=== PATIENT | female | born 1950 | race African-American/Black ===

== ENCOUNTER 2022-10-12 02:02 | Inpatient (IN) | payer MEDICARE, MEDICAID ==
[~2022-10-12] VITALS: Ht 170.2 cm; Wt 50.9 kg
[2022-10-12] MEDS ORDERED: MORPHINE SULFATE 4 MG/ML CPJ (NOT FOR IM USE) IV ONE (03:30)
[2022-10-12] MEDS ORDERED: FUROSEMIDE 100MG/10ML VIAL IVP ONE (03:30)
[2022-10-12] MEDS ORDERED: ENALAPRIL 2.5MG/2ML VIAL 2ML IV ONE (03:30)
[2022-10-12] MEDS ORDERED: NITROGLYCERIN OINT 1GM/INCH UDPKT TD ONE ×2 (03:30)
[2022-10-12] MEDS ORDERED: FUROSEMIDE 40MG/4ML VIAL IVP NR (03:45)
[2022-10-12] MEDS ORDERED: ENALAPRIL 2.5MG/2ML VIAL 2ML IV NR (04:15)
[2022-10-12 04:42] LABS: BASOPHILS % 0.8 % (0.0-2.0); EOSINOPHILS % 1.4 % (0.0-5.0); HEMATOCRIT. 34.4 % (36.0-48.0); HEMOGLOBIN. 11.2 g/dL (12.0-16.0); LYMPHOCYTES % 28.9 % (20.0-50.0); MEAN CORPUSCULAR HEMOGLOBIN 30.4 pg (28.0-32.0); MEAN CORPUSCULAR VOLUME 93.1 fL (81.0-99.0); MEAN PLATELET VOLUME 10.3 fl (7.4-10.4); MONOCYTES % 4.8 % (2.0-8.0); NEUTROPHILS % 64.1 % (40.0-76.0); PLATELET 234 x1000/uL (130-400); RED BLOOD CELL COUNT 3.69 mill/uL (4.2-5.4); RED CELL DISTRIBUTION WIDTH 16.1 % (11.6-14.6)
[2022-10-12 04:50] LABS: CHLORIDE 114 mEq/L (98-107)
[2022-10-12] MEDS ORDERED: LEVOFLOXACIN 500MG PREMIX 100 ML IV NR (05:45)
[2022-10-12] MEDS ORDERED: IPRATROPIUM/ALBUTEROL 0.5-3(2.5)MG/3ML NEB HHN PRN ×2 (09:45→12:30)
[2022-10-12] MEDS ORDERED: DOCUSATE SODIUM 100MG CAPSULE PO PRN (09:45)
[2022-10-12] MEDS ORDERED: ONDANSETRON HCL 4MG/2ML INJ IV PRN (09:45)
[2022-10-12] MEDS ORDERED: LORAZEPAM 0.5MG TABLET PO PRN (09:45)
[2022-10-12] MEDS ORDERED: SODIUM POLYSTYRENE SULFONATE 15 G/60 ML BOT PO NR (09:45)
[2022-10-12] MEDS ORDERED: GUAIFENESIN 200MG/10ML SUGAR FREE UDC PO PRN (09:45)
[2022-10-12] MEDS ORDERED: ACETAMINOPHEN 325MG TABLET PO PRN ×2 (09:45)
[2022-10-12] MEDS ORDERED: CLONIDINE 0.1MG TABLET PO PRN (09:45)
[2022-10-12] MEDS: AZITHROMYCIN 500 MG in DEXT 5% WATER 250 ML IV SCH (10:00)
[2022-10-12 10:53] LABS: T4 FREE 1.27 ng/dL (0.76-1.46)
[2022-10-12] MEDS ORDERED: ENOXAPARIN 40MG/0.4ML SYR SUBCUT SCH (11:00)
[2022-10-12 11:22] LABS: VITAMIN B12 SERUM 1011 pg/mL (211-911)
[2022-10-12 11:23] LABS: FOLIC ACID (FOLATE) SERUM > 20.00 ng/mL (>5.38)
[2022-10-12] MEDS ORDERED: CEFTRIAXONE 1GM PREMIX 50 ML IV SCH (12:30)
[2022-10-12 13:16] LABS: BG BASE EXCESS -7.9 mmol/L (-2.0-2.0); BG CARBOXYHEMOGLOBIN 0.3 % (0.5-1.5); BG DEOXYHEMOGLOBIN 0.7 % (0.0-5.0); BG FRACTION INSPIRED OXYGEN 90; BG HCO3 ACT 16.7 mmol/L (22.0-26.0); BG METHEMOGLOBIN 0.5 % (0.0-1.5); BG OXYGEN SATURATION 99.3 % (92.0-98.5); BG OXYHEMOGLOBIN 98.5 % (94.0-97.0); BG PCO2 30.7 mmHg (35.0-45.0); BG PH 7.354 (7.350-7.450); BG PO2 267.2 mmHg (75.0-100.0); BG SAMPLE SITE RIGHT BRACHIAL; BG TOTAL HEMOGLOBIN 9.1 g/dL (12.0-18.0); BG TOTAL RESPIRATORY RATE 25 b/min; BG VENT MODE MASK - BIPAP
[2022-10-12 13:24] LABS: FERRITIN 368 ng/mL (10-291)
[2022-10-12] MEDS: IPRATROPIUM/ALBUTEROL 0.5-3(2.5)MG/3ML NEB HHN SCH ×2 (13:42→21:15)
[2022-10-12] MEDS: BUDESONIDE 0.5MG/2ML NEB HHN SCH ×2 (13:42→21:16)
[2022-10-12 17:00] VITALS: BP 143/78
[2022-10-12] MEDS ORDERED: SODIUM BICARBONATE 650 MG TABLET PO SCH (17:00)
[2022-10-12 17:24] VITALS: BP 143/78
[2022-10-12] MEDS: FUROSEMIDE 40MG/4ML VIAL IVP SCH (17:39)
[2022-10-12] MEDS: LACTULOSE 20G/30ML UDC PO SCH (17:39)
[2022-10-12] MEDS ORDERED: SODI650T PO (19:48)
[2022-10-12] MEDS ORDERED: DORZ10DR8 EACHEYE (19:48)
[2022-10-12] MEDS ORDERED: FERR-63 PO (19:48)
[2022-10-12] MEDS ORDERED: PROP10TA10 PO (19:48)
[2022-10-12] MEDS ORDERED: RIFA550T PO (19:48)
[2022-10-12] MEDS ORDERED: CARD12 PO (19:48)
[2022-10-12] MEDS ORDERED: PANT40TA51 PO (19:48)
[2022-10-12] MEDS ORDERED: FURO40TA5 PO (19:48)
[2022-10-12] MEDS ORDERED: PROP20TA19 PO (19:48)
[2022-10-12] MEDS ORDERED: NIFE90TA43 PO (19:48)
[2022-10-12 20:08] LABS: HEPATITIS B SURFACE ANTIGEN NEGATIVE
[2022-10-12 20:09] VITALS: BP 118/88
[2022-10-12] MEDS: RIFAXIMIN 550 MG TABLET PO SCH (20:24)
[2022-10-12] MEDS: PROPRANOLOL HCL 10MG TABLET PO SCH (20:24)
[2022-10-12] MEDS: GUAIFENESIN 600MG ER TABLET PO SCH (20:25)
[2022-10-12] MEDS ORDERED: FAMOTIDINE 20MG TABLET PO SCH (21:00)
[2022-10-12] MEDS ORDERED: FUROSEMIDE 40MG TABLET PO SCH (21:00)
[2022-10-13] VITALS (12 sets, daily range): BP systolic 115–141; BP diastolic 62–70
[2022-10-13 00:45] LABS: CREATINE KINASE MB FRACTION 6.9 ng/mL (0.5-3.6)
[2022-10-13] MEDS: IPRATROPIUM/ALBUTEROL 0.5-3(2.5)MG/3ML NEB HHN SCH ×4 (02:15→20:08)
[2022-10-13] MEDS: FUROSEMIDE 40MG/4ML VIAL IVP SCH ×2 (05:04→17:09)
[2022-10-13 06:57] LABS: HEMATOCRIT 21.1 % (36.0-48.0); HEMOGLOBIN 7.2 g/dL (12.0-16.0); MEAN CORPUSCULAR HEMOGLOBIN 31.2 pg (28.0-32.0); MEAN CORPUSCULAR VOLUME 91.2 fL (81.0-99.0); PLATELET 79 x1000/uL (130-400); RED BLOOD CELL COUNT 2.32 mill/uL (4.2-5.4); RED CELL DISTRIBUTION WIDTH 15.4 % (11.6-14.6)
[2022-10-13 07:41] LABS: PHOSPHORUS 4.4 mg/dL (2.5-4.9)
[2022-10-13] MEDS: BUDESONIDE 0.5MG/2ML NEB HHN SCH ×2 (08:03→20:08)
[2022-10-13] MEDS ORDERED: NIFEDIPINE XL 60MG TAB PO SCH (09:00)
[2022-10-13 10:06] LABS: BG BASE EXCESS -4.6 mmol/L (-2.0-2.0); BG CARBOXYHEMOGLOBIN 0.3 % (0.5-1.5); BG DEOXYHEMOGLOBIN 3.3 % (0.0-5.0); BG FRACTION INSPIRED OXYGEN 28; BG HCO3 ACT 19.1 mmol/L (22.0-26.0); BG METHEMOGLOBIN 1.1 % (0.0-1.5); BG OXYGEN SATURATION 96.7 % (92.0-98.5); BG OXYHEMOGLOBIN 95.3 % (94.0-97.0); BG PCO2 29.1 mmHg (35.0-45.0); BG PH 7.435 (7.350-7.450); BG PO2 95.8 mmHg (75.0-100.0); BG SAMPLE SITE RIGHT RADIAL; BG TOTAL HEMOGLOBIN 7.1 g/dL (12.0-18.0); BG VENT MODE NASAL CANNULA
[2022-10-13] MEDS: PANTOPRAZOLE 40MG DR TABLET PO SCH (10:33)
[2022-10-13] MEDS: LACTULOSE 20G/30ML UDC PO SCH ×2 (10:33→17:09)
[2022-10-13] MEDS: RIFAXIMIN 550 MG TABLET PO SCH ×2 (10:33→21:36)
[2022-10-13] MEDS: AMLODIPINE 5MG TABLET PO SCH (10:33)
[2022-10-13] MEDS: PROPRANOLOL HCL 10MG TABLET PO SCH ×2 (10:33→21:36)
[2022-10-13] MEDS: GUAIFENESIN 600MG ER TABLET PO SCH ×2 (10:33→21:36)
[2022-10-13 11:00] LABS: PHOSPHORUS 3.7 mg/dL (2.5-4.9)
[2022-10-13 12:41] LABS: MEAN CORPUSCULAR HEMOGLOBIN 31.1 pg (28.0-32.0); MEAN CORPUSCULAR VOLUME 91.7 fL (81.0-99.0); PLATELET 75 x1000/uL (130-400); RED BLOOD CELL COUNT 2.16 mill/uL (4.2-5.4); RED CELL DISTRIBUTION WIDTH 15.4 % (11.6-14.6)
[2022-10-13 13:00] LABS: HEMATOCRIT 19.8 % (36.0-48.0); HEMOGLOBIN 6.7 g/dL (12.0-16.0)
[2022-10-13] MEDS: AZITHROMYCIN 500 MG in DEXT 5% WATER 250 ML IV SCH (15:09)
[2022-10-13] MEDS: CEFTRIAXONE 1,000 MG in DEXTROSE 5% WATER 50 ML IV SCH (17:09)
[2022-10-13 17:34] LABS: INR 1.2; PROTHROMBIN TIME 13.1 sec (9.6-11.0)
[2022-10-13 18:00] LABS: FERRITIN 206 ng/mL (10-291)
[2022-10-13 18:11] LABS: VITAMIN B12 SERUM 863 pg/mL (211-911)
[2022-10-13 20:27] LABS: CLARITY URINE CLEAR (CLEAR); COLOR URINE YELLOW (YELLOW); KETONES URINE NEGATIVE (NEGATIVE); LEUKOCYTE ESTERASE URINE TRACE (NEGATIVE); NITRITE URINE NEGATIVE (NEGATIVE); OCCULT BLOOD URINE NEGATIVE (NEGATIVE); PROTEIN URINE 1+ (NEGATIVE); SPECIFIC GRAVITY URINE 1.009 (1.005-1.030); UROBILINOGEN URINE 0.2 E.U./dL (0.2-1.0)
[2022-10-13 20:36] LABS: SODIUM URINE RANDOM 60 mEq/L
[2022-10-13 20:42] LABS: *AMPHETAMINES SCREEN URINE NEGATIVE (NEGATIVE); *BARBITURATES SCREEN URINE NEGATIVE (NEGATIVE); *BENZODIAZEPINES SCREEN URINE NEGATIVE (NEGATIVE); *COCAINE SCREEN URINE NEGATIVE (NEGATIVE); CANNABINOID URINE SCREEN NEGATIVE (NEGATIVE); METHADONE URINE SCREEN NEGATIVE (NEGATIVE); OPIATES URINE SCREEN NEGATIVE (NEGATIVE); PHENCYCLIDINE URINE SCREEN NEGATIVE (NEGATIVE)
[2022-10-14] VITALS (9 sets, daily range): BP systolic 118–166; BP diastolic 58–79
[2022-10-14] MEDS: IPRATROPIUM/ALBUTEROL 0.5-3(2.5)MG/3ML NEB HHN SCH ×4 (02:13→20:25)
[2022-10-14 05:06] LABS: BASOPHILS % 0.5 % (0.0-2.0); EOSINOPHILS % 2.1 % (0.0-5.0); HEMOGLOBIN. 7.2 g/dL (12.0-16.0); LYMPHOCYTES % 20.3 % (20.0-50.0); MEAN CORPUSCULAR VOLUME 90.4 fL (81.0-99.0); MONOCYTES % 7.9 % (2.0-8.0); NEUTROPHILS % 69.2 % (40.0-76.0); PLATELET 67 x1000/uL (130-400); RED BLOOD CELL COUNT 2.31 mill/uL (4.2-5.4); RED CELL DISTRIBUTION WIDTH 15.3 % (11.6-14.6)
[2022-10-14 05:17] LABS: HEMATOCRIT. 20.9 % (36.0-48.0)
[2022-10-14 05:22] LABS: PHOSPHORUS 3.8 mg/dL (2.5-4.9)
[2022-10-14] MEDS: FUROSEMIDE 40MG/4ML VIAL IVP SCH ×2 (06:24→17:32)
[2022-10-14] MEDS: GUAIFENESIN 600MG ER TABLET PO SCH ×2 (09:12→21:40)
[2022-10-14] MEDS: LACTULOSE 20G/30ML UDC PO SCH ×2 (09:12→17:00)
[2022-10-14] MEDS: RIFAXIMIN 550 MG TABLET PO SCH ×2 (09:12→21:40)
[2022-10-14] MEDS: PANTOPRAZOLE 40MG DR TABLET PO SCH (09:12)
[2022-10-14] MEDS: AMLODIPINE 5MG TABLET PO SCH (09:13)
[2022-10-14] MEDS: AZITHROMYCIN 500 MG TABLET PO SCH (09:13)
[2022-10-14] MEDS: PROPRANOLOL HCL 10MG TABLET PO SCH ×2 (09:13→21:41)
[2022-10-14] MEDS ORDERED: LACTULOSE 20G/30ML UDC PO NR (09:30)
[2022-10-14] MEDS: CEFTRIAXONE 1,000 MG in DEXTROSE 5% WATER 50 ML IV SCH (15:26)
[2022-10-14 20:19] LABS: HEMATOCRIT 28.7 % (36.0-48.0); HEMOGLOBIN 9.7 g/dL (12.0-16.0)
[2022-10-14] MEDS: BUDESONIDE 0.5MG/2ML NEB HHN SCH (20:25)
[2022-10-14 20:26] LABS: INR 1.2; PROTHROMBIN TIME 12.3 sec (9.6-11.0)
[2022-10-15] VITALS: BP 135/67
[2022-10-15] MEDS: IPRATROPIUM/ALBUTEROL 0.5-3(2.5)MG/3ML NEB HHN SCH ×2 (01:16→07:46)
[2022-10-15 04:00] VITALS: BP 117/60
[2022-10-15] MEDS: FUROSEMIDE 40MG/4ML VIAL IVP SCH (06:27)
[2022-10-15 06:43] LABS: INR 1.2; PROTHROMBIN TIME 12.3 sec (9.6-11.0)
[2022-10-15 06:57] LABS: BASOPHILS % 0.4 % (0.0-2.0); EOSINOPHILS % 2.3 % (0.0-5.0); HEMATOCRIT. 25.7 % (36.0-48.0); LYMPHOCYTES % 21.7 % (20.0-50.0); MEAN CORPUSCULAR HEMOGLOBIN 31.3 pg (28.0-32.0); MEAN CORPUSCULAR VOLUME 89.4 fL (81.0-99.0); MEAN PLATELET VOLUME 9.9 fl (7.4-10.4); MONOCYTES % 8.1 % (2.0-8.0); NEUTROPHILS % 67.5 % (40.0-76.0); PLATELET 72 x1000/uL (130-400); RED BLOOD CELL COUNT 2.87 mill/uL (4.2-5.4); RED CELL DISTRIBUTION WIDTH 15.2 % (11.6-14.6)
[2022-10-15] MEDS: BUDESONIDE 0.5MG/2ML NEB HHN SCH (07:46)
[2022-10-15 08:00] VITALS: BP 104/39
[2022-10-15] MEDS: PANTOPRAZOLE 40MG DR TABLET PO SCH (08:46)
[2022-10-15] MEDS: AZITHROMYCIN 500 MG TABLET PO SCH (08:46)
[2022-10-15] MEDS: LACTULOSE 20G/30ML UDC PO SCH (08:46)
[2022-10-15] MEDS: GUAIFENESIN 600MG ER TABLET PO SCH (08:46)
[2022-10-15] MEDS: RIFAXIMIN 550 MG TABLET PO SCH (08:46)
[2022-10-15] MEDS: AMLODIPINE 5MG TABLET PO SCH (08:47)
[2022-10-15] MEDS: PROPRANOLOL HCL 10MG TABLET PO SCH (08:47)
[2022-10-15] MEDS ORDERED: AMLO5TAB88 PO (10:43)
[2022-10-15] MEDS ORDERED: AZIT500T8 PO (10:43)
[2022-10-15 11:45] VITALS: BP 104/39
[2022-10-15 12:00] VITALS: BP_SYST 133; BP_SYST 151; BP_DIAS 68; BP_DIAS 76
[2022-10-15] MEDS ORDERED: FUROSEMIDE 40MG TABLET PO SCH (21:00)
== END 2022-10-15 13:20 | disposition home or self-care (01) | DRG 871 ==
LOC: ER 02:02 → 7WST 06:05 → EDBEDREQ 06:15 → EDBEDREQSVC 15:26
PROVIDERS: ADMIT Internal Medicine; ATTEND Internal Medicine
PROC: 5A09357 Assistance with Respiratory Ventilation, Less than 24 Consecutive Hours, Continuous Positive Airway Pressure (ICD-10-PCS; principal; 2022-10-12)
PROC: 30233N1 Transfusion of Nonautologous Red Blood Cells into Peripheral Vein, Percutaneous Approach (ICD-10-PCS; 2022-10-13)
DX: A41.9 Sepsis, unspecified organism (principal); I21.A1 Myocardial infarction type 2; I50.43 Acute on chronic combined systolic (congestive) and diastolic (congestive) heart failure; J18.9 Pneumonia, unspecified organism; J96.01 Acute respiratory failure with hypoxia; I13.0 Hypertensive heart and chronic kidney disease with heart failure and stage 1 through stage 4 chronic kidney disease, or unspecified chronic kidney disease; I16.9 Hypertensive crisis, unspecified; R18.8 Other ascites; J44.0 Chronic obstructive pulmonary disease with (acute) lower respiratory infection; I16.1 Hypertensive emergency; E87.20 Acidosis, unspecified; J44.1 Chronic obstructive pulmonary disease with (acute) exacerbation; K76.6 Portal hypertension; N17.9 Acute kidney failure, unspecified; Z20.822 Contact with and (suspected) exposure to COVID-19; D64.9 Anemia, unspecified; N18.9 Chronic kidney disease, unspecified; B19.20 Unspecified viral hepatitis C without hepatic coma; D69.6 Thrombocytopenia, unspecified; E87.5 Hyperkalemia; F17.210 Nicotine dependence, cigarettes, uncomplicated; K74.60 Unspecified cirrhosis of liver; Z79.82 Long term (current) use of aspirin; Z79.899 Other long term (current) drug therapy; Z90.49 Acquired absence of other specified parts of digestive tract; Z93.3 Colostomy status
CPT/HCPCS: 36415; 36600; 71045; 76700; 76770; 80048; 80053; 80061; 80076; 80305; 81003; 82140; 82270; 82375; 82550; 82553; 82570; 82607; 82728; 82746; 82805; 82962; 83540; 83550; 83605; 83735; 83880; 84100; 84145; 84300; 84439; 84443; 84484; 85014; 85018; 85025; 85027; 85044; 85049; 85379; 85384; 86803; 86850; 86900; 86920; 87070; 87340; 87426; 93005; 93306; 93970; 94640; 94660; 99291; J0456; J0696; J1650; J1940; J1956; J3490; J7060; J7626; P9016